=== PATIENT | female | born 1970 | race Caucasian/White ===

== ENCOUNTER 2025-05-19 13:47 | Outpatient (CLI) | payer MEDICAID, SELFPAY ==
[2025-05-19] MEDS: 0.9% NaCl Peripheral Flush Adult IV (14:13)
[2025-05-19] MEDS: 0.9% NaCl IVPB Med Flush (100mL) 15 ML IV (14:14)
[2025-05-19 14:15] VITALS: BP 108/66; PULSE 74; RESP 16; TEMP 36.2; O2SAT 98; BMI 29.2
[2025-05-19 14:41] VITALS: BP 91/64; PULSE 66; RESP 16; TEMP 36.3; O2SAT 99
== END 2025-05-19 23:59 | disposition home or self-care (01) ==
LOC: MEDOUTP 13:49
PROVIDERS: PCP Nurse Practitioner Family; Referring Provider Internal Medicine Endocrinology, Diabetes & Metabolism; Visit Provider Internal Medicine Endocrinology, Diabetes & Metabolism
DX: M81.0 Age-related osteoporosis without current pathological fracture (principal)
CPT/HCPCS: 96365; A4216; J3489

== ENCOUNTER 2025-07-27 10:17 | Inpatient (IN) | payer MEDICAID, SELFPAY ==
--- NOTE | 2025-07-15 08:41 | EKG12_ITS ---
Test Reason : PREOP Blood Pressure : */* mmHG Vent. Rate : 67 BPM Atrial Rate : 67 BPM P-R Int : 158 ms QRS Dur : 76 ms QT Int : 420 ms P-R-T Axes : 73 45 73 degrees QTcB Int : 443 ms Normal sinus rhythm Cannot rule out Septal infarct , age undetermined Abnormal ECG Confirmed by Chadwick Eason ([id number]), film editor supervisor DIANNA SERRANO ([id number]) on 07/16/2025 5:53:19 AM Referred By: Andrey Willson Confirmed By: Chadwick Eaosn
[2025-07-15 10:09] LABS: Hematocrit 45.2 % (37-47); Hemoglobin 15.6 g/dL (12.0-15.0); Mean Corp Hgb Conc 34.5 g/dL (32-36); Mean Corpuscular Volume 86.8 fL (81-99); Mean Platelet Vol. 10.5 fl (6.2-12.0); Platelet Count 226 K/mm3 (150-450); RBC Distribution Width CV 11.9 % (11.6-14.6); RBC Distribution Width SD 38.3 fl (35.1-43.9); Red Blood Count 5.21 M/mm3 (4.2-5.4); White Blood Count 7.2 K/mm3 (4.4-11.0)
[2025-07-15 11:03] LABS: PTHIN 52 pg/mL (11-61)
[2025-07-15 11:17] LABS: AST(SGOT) 23 U/L (<=31); Alanine Aminotransfer ALT/SGPT 30 U/L (<=34); Albumin, Serum 4.4 g/dL (3.5-5.0); Alkaline Phosphatase 70 U/L (35-104); Anion Gap 12 (5-15); BUN 18 mg/dL (4-19); BUN/Creat Ratio 28.6 RATIO (10-20); Calcium,Total 10.0 mg/dL (7.6-11.0); Carbon Dioxide 26.1 mmol/L (21.0-32.0); Chloride 103 mmol/L (98-108); Globulin 2.9 g/dL (2.2-4.2); Glucose 78 mg/dL (70-99); Potassium 4.8 mmol/L (3.3-5.1)
[2025-07-15 11:46] LABS: Ferritin 349 ng/mL (22-378); Vitamin B12 2203 pg/mL (180-914); Vitamin D,25 Hydroxy 62.8 ng/mL (30-100)
--- NOTE | 2025-07-15 17:30 | PAT.ANESEVAL ---
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 When Was Last Pacemaker Check QUESTION #4 FULL TEXT: You/Your Family Experience fever (hyperthermia) with Anesthesia Last Oral Intake Last Oral intake: Last Oral Intake NPO since Meds taken in AM with sips of water? Meds patient instructed to take am of surgery PONV PONV - waiter/waitress: PONV - waiter/waitress Female Yes 07/12/25 09:08 HX of Motion Sickness No 07/12/25 09:08 HX of N/V After Surgery No 07/12/25 09:08 Non-Smoker Yes 07/12/25 09:08 Duration of Surgery greater Yes 07/12/25 09:08 than 60 minutes Number of Risk Factors 3 07/12/25 09:08 PONV Score Moderate Risk 07/12/25 09:08 Height & Weight Height & Weight: Anesthesia: Height & Weight Height 5 ft 2 in 05/19/25 14:15 Respiratory Assessment Respiratory Assessment - waiter/waitress: Respiratory Tract Infection Hx - waiter/waitress Hx Respiratory Tract Infection No 07/12/25 09:08 STOP Sleep Apnea STOP Sleep Apnea - waiter/waitress: STOP Sleep Apnea - waiter/waitress Hx Hypertension Yes: CONTROLLED WITH MED 07/12/25 09:08 Hx Sleep Apnea No 07/12/25 09:08 CPAP BIPAP Do you snore loudly (louder No 07/12/25 09:08 than talking or can be heard Do you often feel tired/ No 07/12/25 09:08 fatigued/ sleepy during daytime? Has anyone observed you stop No 07/12/25 09:08 breathing during sleep? STOP Results Negative 07/12/25 09:08 QUESTION #5 FULL TEXT : Do you snore loudly (louder than talking or can be heard through closed doors)? Tobacco Use History Tobacco Use History - waiter/waitress: Tobacco Use History - waiter/waitress Tobacco Use Smoking Status Former smoker 07/12/25 09:08 Hx Tobacco Use No 07/12/25 09:08 Years Smoking Packs Smoked per Day Smoking Cessation Date was Yes - quit smoking within 15 07/12/25 09:08 within the last 15 years years Hx Smoking Cessation Date 10/21/13 07/12/25 09:08 Hx Smoking Cessation No 07/12/25 09:08 Counseling Hematologic Medial History Hematologic Hx - waiter/waitress: Hematologic Medical Hx - garde manger Hx of Blood Transfusion No 07/12/25 09:08 Hx of Transfusion in last 3 No 07/12/25 09:08 Months Date of Last Transfusion (if within last 3 months) Ever experience any problems No 07/12/25 09:08 with transfusion(s)? Specify any problems Hx of Preganancy in last 3 No 07/12/25 09:08 Months Nurse Filling Out Transfusion DSCHRIBER 07/12/25 09:08 & Questions: Date: 07/12/25 07/12/25 09:08 Time: 09:10 07/12/25 09:08 Patient unable to answer at this time (ie. confused, unrespo /Reproduction History /Reproductive History - waiter/waitress: /Reproductive Hx- waiter/waitress Hx Now No 07/12/25 09:08 Gestational Age (in weeks): EDC: Hx Hx Para Hx Section SAB No 07/12/25 09:08 [facility] Medical History (Updated 07/12/25 @ 09:17 by Vicky Augilar) Post-menopausal Wears glasses Depression Alcohol use Diabetes Fatty liver High cholesterol History of hiatal hernia Diverticulosis Gastric reflux Asthma Former smoker History of edema Cardiology follow-up encounter History of echocardiogram History of stress test Osteoporosis Osteoarthritis Hypertension Arthritis Home Medications ?Medication ?Instructions ?Recorded ?Last Taken ?Type Citrocal 1,200 mg PO BID SUPPLEMENT 05/03/25 Unknown History aspirin 81 mg tablet,delayed 81 mg PO QDAY HEART 05/03/25 Unknown History release atorvastatin 10 mg tablet 10 mg PO QHS CHOLESTEROL 05/03/25 Unknown History citalopram 40 mg tablet 40 mg PO QDAY DEPRESSION 05/03/25 Unknown History lisinopril 10 1 tab PO QDAY BP 05/03/25 Unknown History mg-hydrochlorothiazide 12.5 mg tablet loratadine 10 mg tablet 10 mg PO QAM PRN allergic symptoms 05/03/25 Unknown History omeprazole 40 mg capsule,delayed 40 mg PO QDAY GERD 05/03/25 Unknown History release multivitamin (Daily Multi-Vitamin 1 tab PO DAILY SUPPLEMENT 05/19/25 Unknown History tablet) dulaglutide 1.5 mg/0.5 mL 1.5 mg subcut FR WEIGHT LOSS 06/30/25 Unknown History subcutaneous pen injector ([facility]) zoledronic acid 5 mg/100 mL in 1 ea IV .QYEAR BONE HEALTH 07/12/25 Unknown History mannitol 5 %-water intravenous piggybck Allergy/AdvReac Type Severity Reaction Status Date / Time No Known Allergies Allergy Verified 07/12/25 09:03 Family History Other Anxiety Arthritis Cervical cancer Depression Diabetes Hypertension Psychiatric care Respiratory disease Suicide attempt Surgical History (Updated 07/12/25 @ 09:17 by Vicky Aguilar) Bariatric surgery status History of mandibular surgery (~1997) History of placement of ear tubes (~1983) Social History Smoking Status: Former smoker alcohol intake: current substance use type: does not use what type of physical activity do you participate in: walking frequency: 3-4 times per week Audit: Pertinent Findings Pertinent Findings EKG Perinent findings: 04/05/2024. Sinus rhythm with PAC. Stress test pertinent findings: 08/16/2022. Patient she is 5.4 METS. EF is 65%. No definite evidence of ischemia or prior infarction. Echo (EF%) pertinent findings: 08/16/2022. Normal LV systolic EF is 60%. No aortic stenosis noted. Consult pertinent findings: 03/19/2023. Dr. De León?cardiology. 1. Preop clearance for bariatric surgery-echo and stress test were unremarkable without evidence of ischemia. Patient average risk for cardiovascular complications from bariatric surgery. No further cardiac testing is indicated. Recommendation Anesthesia Recommendation Anesthesia recommendation: OPTIMIZED for anesthesia
[2025-07-22 18:08] LABS: Vitamin A, Retinol 52.2 ug/dL (20.1-62.0)
[2025-07-27] VITALS (24 sets, daily range): BP systolic 97–128; BP diastolic 43–79; PULSE 58–98; RESP 11–20; TEMP 36.3–37.1; O2SAT 95–100; BMI 28.6; BMI 29.5
[2025-07-27] MEDS: Lactated Ringers 1,000 ML 15 ML IV (06:37)
--- NOTE | 2025-07-27 06:43 | PCM.PRE.AN2 ---
ASA Classification* ASA Classification ASA Classification: 3 Assessment & Plan Anesthesia* Anesthesia Assessment Anesthesia Assessment: Discussed sedation and/or anesthesia options, risks, benefits, and alternatives with patient/parents/legal guardian/POA. Questions invited. The patient/parents/legal guardian/POA seems to understand and agrees to proceed with anesthesia plan. Reviewed the physical assessment, medical history, allergy history and patient home medications list prior to surgery/procedure/anesthetic and documented any changes. Performed airway and anesthesia risk assessments. Anesthesia Type Anesthesia Type: General ([place] ) Anesthesia Focused Assessment* Temperature: 98.5 F Pulse Rate: 65 Blood Pressure: 128/79 Respiratory Rate: 18 Pulse Ox: 97 Airway Assessment Mouth opens: >3 cm Mallampati Score: II Labs Anesthesia Preop lab: CBC WBC, (4.4-11.0) 7.2 K/mm3 07/15/25, 09:44 RBC, (4.2-5.4) 5.21 M/mm3 07/15/25, 09:44 Hgb, (12.0-15.0) 15.6 g/dL H 07/15/25, 09:44 Hct, (37-47) 45.2 % 07/15/25, 09:44 Plt Count, (150-450) 226 K/mm3 07/15/25, 09:44 CHEMISTRY Potassium, (3.3-5.1) 4.8 mmol/L 07/15/25, 09:48 Sodium, (133-145) 141 mmol/L 07/15/25, 09:48 BUN, (4-19) 18 mg/dL 07/15/25, 09:48 Creatinine, (0.70-1.20) 0.63 mg/dL L 07/15/25, 09:48 Glucose, (70-99) 78 mg/dL 07/15/25, 09:48 COAG Pre-Assessment Diagnosis/Proposed Procedure Planned Operative Procedure(s): RIGHT CAROTID ENDARTERECTOMY Anesthesia History 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 When Was Last Pacemaker Check QUESTION #4 FULL TEXT: You/Your Family Experience fever (hyperthermia) with Anesthesia Last Oral Intake Last Oral intake: Last Oral Intake NPO since 04:00 07/27/25 06:21 Meds taken in AM with sips of Yes 07/27/25 06:21 water? Meds patient instructed to see medlist 07/27/25 06:21 take am of surgery PONV PONV - automotive detailer: PONV - automotive detailer Female Yes 07/12/25 09:08 HX of Motion Sickness No 07/12/25 09:08 HX of N/V After Surgery No 07/12/25 09:08 Non-Smoker Yes 07/12/25 09:08 Duration of Surgery greater Yes 07/12/25 09:08 than 60 minutes Number of Risk Factors 3 07/12/25 09:08 PONV Score Moderate Risk 07/12/25 09:08 Height & Weight Height & Weight: Anesthesia: Height & Weight Height 5 ft 2 in 07/27/25 06:21 Weight: 71 kg 07/27/25 06:21 Body Mass Index (BMI) 28.6 07/27/25 06:21 Respiratory Assessment Respiratory Assessment - automotive detailer: Respiratory Tract Infection Hx - automotive detailer Hx Respiratory Tract Infection No 07/12/25 09:08 STOP Sleep Apnea STOP Sleep Apnea - automotive detailer: STOP Sleep Apnea - automotive detailer Hx Hypertension Yes: CONTROLLED WITH MED 07/12/25 09:08 Hx Sleep Apnea No 07/12/25 09:08 CPAP BIPAP Do you snore loudly (louder No 07/12/25 09:08 than talking or can be heard Do you often feel tired/ No 07/12/25 09:08 fatigued/ sleepy during daytime? Has anyone observed you stop No 07/12/25 09:08 breathing during sleep? STOP Results Negative 07/12/25 09:08 QUESTION #5 FULL TEXT : Do you snore loudly (louder than talking or can be heard through closed doors)? Tobacco Use History Tobacco Use History - automotive detailer: Tobacco Use History - automotive detailer Tobacco Use Smoking Status Former smoker 07/12/25 09:08 Hx Tobacco Use No 07/12/25 09:08 Years Smoking Packs Smoked per Day Smoking Cessation Date was Yes - quit smoking within 15 07/12/25 09:08 within the last 15 years years Hx Smoking Cessation Date 10/21/13 07/12/25 09:08 Hx Smoking Cessation No 07/12/25 09:08 Counseling Hematologic Medial History Hematologic Hx - automotive detailer: Hematologic Medical Hx - key account representative Hx of Blood Transfusion No 07/12/25 09:08 Hx of Transfusion in last 3 No 07/12/25 09:08 Months Date of Last Transfusion (if within last 3 months) Ever experience any problems No 07/12/25 09:08 with transfusion(s)? Specify any problems Hx of Preganancy in last 3 No 07/12/25 09:08 Months Nurse Filling Out Transfusion DSCHRIBER 07/12/25 09:08 & Questions: Date: 07/12/25 07/12/25 09:08 Time: 09:10 07/12/25 09:08 Patient unable to answer at this time (ie. confused, unrespo /Reproduction History /Reproductive History - automotive detailer: /Reproductive Hx- automotive detailer Hx Now No 07/12/25 09:08 Gestational Age (in weeks): EDC: Hx Hx Para Hx Section SAB No 07/12/25 09:08 Active Medications Active Medications: Current Medications Generic Name Dose Route Start Last Admin Trade Name Freq PRN Reason Stop Dose Admin Cefazolin Sodium 2 gm/ Sodium 110 mls @ 200 mls/hr 07/27/25 07:30 Chloride IV 07/27/25 08:02 INTRAOP ONE Lactated Ringer's 1,000 mls @ 15 mls/hr 07/27/25 05:45 07/27/25 06:37 IV 15 mls/hr .Q48H RENE Administration PFSH Medical History Post-menopausal Wears glasses Depression Alcohol use Diabetes Fatty liver High cholesterol History of hiatal hernia Diverticulosis Gastric reflux Asthma Former smoker History of edema Cardiology follow-up encounter History of echocardiogram History of stress test Osteoporosis Osteoarthritis Hypertension Arthritis Home Medications ?Medication ?Instructions ?Recorded ?Last Taken ?Type Citrocal 1,200 mg PO BID SUPPLEMENT 05/03/25 07/25/25 History aspirin 81 mg tablet,delayed 81 mg PO QDAY HEART 05/03/25 07/26/25 History release atorvastatin 10 mg tablet 10 mg PO QHS CHOLESTEROL 05/03/25 07/26/25 History citalopram 40 mg tablet 40 mg PO QDAY DEPRESSION 05/03/25 07/27/25 History lisinopril 10 1 tab PO QDAY BP 05/03/25 07/26/25 History mg-hydrochlorothiazide 12.5 mg tablet loratadine 10 mg tablet 10 mg PO QAM PRN allergic symptoms 05/03/25 07/26/25 History omeprazole 40 mg capsule,delayed 40 mg PO QDAY GERD 05/03/25 07/27/25 History release multivitamin (Daily Multi-Vitamin 1 tab PO DAILY SUPPLEMENT 05/19/25 07/26/25 History tablet) dulaglutide 1.5 mg/0.5 mL 1.5 mg subcut FR WEIGHT LOSS 06/30/25 07/16/25 [facility] zoledronic acid 5 mg/100 mL in 1 ea IV .QYEAR BONE HEALTH 07/12/25 Unknown History mannitol 5 %-water intravenous piggybck Allergy/AdvReac Type Severity Reaction Status Date / Time No Known Allergies Allergy Verified 07/27/25 06:07 Family History Other Anxiety Arthritis Cervical cancer Depression Diabetes Hypertension Psychiatric care Respiratory disease Suicide attempt Surgical History Bariatric surgery status History of mandibular surgery (~1997) History of placement of ear tubes (~1983) Social History Smoking Status: Former smoker alcohol intake: current substance use type: does not use what type of physical activity do you participate in: walking frequency: 3-4 times per week Review of Systems (Anesthesia) ROS Narrative System reviewed and no additional complaints, except as documented.
[2025-07-27] MEDS: Midazolam 2 MG/2 ML Syringe IV (07:25)
--- NOTE | 2025-07-27 07:30 | PLAQ_PTH ---
PATIENT: LYNN PEREZ LOC: ICU U#:[id number] AGE/SX: 55/F ROOM: [facility] RE07/27/[address]: Dr. Andrey Willson MD : 1970 BED: 1 DIS: 07/28/2025 SPEC #: [id number] RECD: 07/27/25 11:49 STATUS: KEISHA REQ #: [id number] RAQUEL: 07/27/25 07:[address]: Andrey Willson DEPT: SURGICAL PATHOLOGY RECD BY: Ortega Camacho ENTERED: 07/27/25 13:42 SP TYPE: PLAQUE OTHR DR: JUAN Mao Tissues: A - PLAQUE Procedures: Decalcification bone/plaque Surgery Specimen Level III HEADER OPERATION: Right carotid endarterectomy PRE-OP DIAGNOSIS: Stenosis of right carotid artery without cerebral infarction TISSUE SUBMITTED: A- Right carotid plaque MICROSCOPIC DIAGNOSIS A. Plaque, right carotid endarterectomy: * Calcifying atheromatous plaque GROSS DESCRIPTION A. Received in formalin labeled with the patient's name and date of . Designated as right carotid plaque is a 2.7 x 1.0 cm yellow-red, calcified plaque. Manager Aviation sections are submitted in 1 cassette, following decalcification. ID 07/27/2025 CPT:[id number]
--- NOTE | 2025-07-27 07:31 | PCM.HP.BLA ---
History and Physical Allergies No Known Allergies Allergy (Verified 06/30/25 13:18) Medications ?Medication ?Instructions ?Recorded ?Confirmed ?Type Citrocal PO BID 05/03/25 06/30/25 History aspirin 81 mg tablet,delayed 81 mg PO QDAY 05/03/25 06/30/25 History release atorvastatin 10 mg tablet 10 mg PO QDAY 05/03/25 06/30/25 History citalopram 40 mg tablet 40 mg PO QDAY 05/03/25 06/30/25 History lisinopril 10 0.5 tab PO QDAY 05/03/25 06/30/25 History mg-hydrochlorothiazide 12.5 mg tablet loratadine 10 mg tablet 10 mg PO QAM PRN allergic symptoms 05/03/25 06/30/25 History omeprazole 40 mg capsule,delayed 40 mg PO QDAY 05/03/25 06/30/25 History release zoledronic acid 5 mg/100 mL in 1 ea .Route ONCE #100 mL 05/07/25 06/30/25 Rx mannitol 5 %-water intravenous piggybck multivitamin (Daily Multi-Vitamin 1 tab PO DAILY 05/19/25 06/30/25 History tablet) dulaglutide 1.5 mg/0.5 mL 1.5 mg subcut QWEEK 06/30/25 06/30/25 [facility] Is last menstrual period known: No Post menopausal: Yes Patient : No Have you fallen in the past year?: No PFSH Medical History GERD (gastroesophageal reflux disease) Osteoporosis Osteoarthritis Hypertension Bone fracture Back problem Arthritis Allergies Surgical History History of mandibular surgery (~1997) History of placement of ear tubes (~1983) Bariatric surgery status (~2024) Family History Other Anxiety Arthritis Cervical cancer Depression Diabetes Hypertension Psychiatric care Respiratory disease Suicide attempt Social History Smoking Status: Former smoker alcohol intake: current substance use type: does not use what type of physical activity do you participate in: walking frequency: 3-4 times per week HPI HPI HPI: LYNN PEREZ, is a 55 F who presents to the office today for evaluation of asymptomatic right carotid stenosis. Initially found while investigating audible pulsation in ear. CTA at outside facility revealed severe right ICA stenosis. No prior numbness/weakness/vision loss/speech difficulty. On ASA/statin. Has coronary artery disease diagnosed as mild during evaluation for gastric bypass surgery about 2 years ago at . No prior neck surgery/XRT/limitation to ROM. She is able to walk up flight of stairs without CP/SOB ROS General General: Yes weight change; No appetite, fatigue, colon cancer, breast cancer or weakness HEENT HEENT: No difficulty swallowing, eye injury, eye surgery, swollen glands or hoarseness Endo Endocrine: No thyroid disease, diabetes mellitus, thyroid cancer, Hair loss, heat intolerance or cold intolerance Skin Skin: No rash or changing moles Musc Musculoskeletal: Yes back problems and arthritis; No rheumatoid arthritis, gout or joint pain Cardio Cardiovascular: Yes heart disease and high blood pressure; No murmur, pacemaker, atrial fibrillation, heart attack, heart stent, palpitations, shortness of breath with exertion or chest pain Psych Psychiatric: Yes depression; No anxiety or hearing voices Resp Respiratory: No shortness of breath, No sleep apnea, No cough, No COPD, No asthma, No emphysema and No wheezing Gastro Gastrointestinal: No abdominal pain, No nausea or vomiting, No diarrhea, No constipation, No blood in stool, Yes acid reflux, Yes hemorrhoids, No ulcers, No gallbladder problem and No black,tarry stools Major Hematologic: Yes blood thinners, No blood disorders, No bleeding, No anemia and No blood clots Neuro Neurologic: No system reviewed and no additional complaints, except as documented, No as per HPI, No abnormal gait, No abnormal hearing, No abnormal movements, No abnormal speech, No behavioral changes, No burning sensations, No confusion, No convulsions, No disequilibrium, No dizziness, Yes localized weakness, No frequent falls, No headache(s), No lack of coordination, No loss of vision, No memory loss, No numbness, No other visual disturbances, No radicular pain, No restless legs, No sensory deficit, No syncope, No tingling, No tremor(s), No weakness and No other Exam Const General: cooperative, healthy appearing, comfortable, no acute distress and well developed Nutritional Appearance: well nourished Orientation: alert, awake and oriented x3 HENMT Head: normocephalic and atraumatic Ears: hearing grossly normal bilaterally Nose: external nose normal Eyes General: appearance normal, both eyes and all related structures EOM: EOM intact bilaterally Neck Neck: normal visual inspection, full ROM, no lymphadenopathy and trachea midline Thyroid: thyroid normal Lymphatic: no lymphadenopathy noted Resp Effort & Inspection: normal respiratory effort, able to speak in complete sentences, symmetric chest movement, no audible wheezes, not labored, no stridor and no use of accessory muscles Auscultation: clear to auscultation bilaterally Cardio Rate: regular rate Rhythm: regular rhythm Heart Sounds: no murmurs Bruits: carotid bruit on the right Pulses: brachial pulses present, radial pulses present, popliteal pulses present, posterior tibial pulses present and dorsalis pedis present Skin General: no rashes or lesions noted and no erythema Wounds: no wounds Neuro Cranial Nerves: CN's II-XI intact bilaterally and EOM intact bilaterally Speech: speech normal Gait: normal gait Motor: strength 5/5 throughout Sensory Exam: no sensory deficits noted Psych Appearance: grossly normal and well kempt Mental Status: mental status grossly normal Mood: congruent mood Speech and Movement: speech and movement normal Thought Content: normal Judgment: judgment good Coding Level of Care Code Off vis,new,level 4 Diagnoses Stenosis of right carotid artery without cerebral infarction I65.21 Assessment and Plan Assessment and Plan (1) Stenosis of right carotid artery without cerebral infarction: Status: Chronic Comment: CTA- images reviewed, 75% stenosis right ICA origin, short lesion, normal bifurcation location, dense calcification Plan: right carotid endarterectomy
[2025-07-27] MEDS: Lidocaine 1% (5 ml sdv) 5 ML Vial IV (07:44)
[2025-07-27] MEDS: Cefazolin 1 GM/5 ML Vial 2 GM IV (07:45)
[2025-07-27] MEDS: Heparin Injection (Vial) 5,000 UNIT/ML VIAL 8000 UNIT IV (09:23)
[2025-07-27 10:23] LABS: ACT Activated Clotting Time 297 sec (74-137)
[2025-07-27 10:23] LABS: ACT Activated Clotting Time 239 sec (74-137)
[2025-07-27 10:23] LABS: ACT Activated Clotting Time 135 sec (74-137)
[2025-07-27 10:23] LABS: ACT Activated Clotting Time 262 sec (74-137)
--- NOTE | 2025-07-27 10:23 | OP.PCM_ITS ---
Operative Report (Standard) Operative Information Date of Procedure: 07/27/25 Pre-Operative Diagnosis: right carotid stenosis Post-Operative Diagnosis: same Surgery/Procedure Performed: right carotid endarterectomy cooky machine operator: Yes Sole Polisher: Sheila Shah Tasks completed by patent legal assistant: Opening, Closing, Opening & closing, Hemostasis: Tie, Hemostasis: Electrocautery and Retracting Type of Anesthesia: General RN Documented Start/Stop Times: Operation Date: 07/27/25 07:30 Case Time Into Pre-Op 07/27/25 05:37 Anesthesia Start 07/27/25 07:37 Into Room 07/27/25 07:37 Procedure Start 07/27/25 08:09 Procedure Start Time: 08:10 Procedure Stop Time: 10:30 Select all DRAINS/GRAFTS/IMPLANTS that apply: Graft Graft details: bovine pericardial patch Estimated Blood Loss: 31 Specimen collected: Yes Description of specimen(s) removed: plaque Surgical Findings: see above
--- NOTE | 2025-07-27 10:23 | PCM.OPRPT ---
Operative Report (Standard) Operative Information Date of Procedure: 07/27/25 Pre-Operative Diagnosis: right carotid stenosis Post-Operative Diagnosis: same Surgery/Procedure Performed: right carotid endarterectomy grey stock recorder: Yes Stock Handler: Sheila Shah Tasks completed by airline pilot/first officer: Opening, Closing, Opening & closing, Hemostasis: Tie, Hemostasis: Electrocautery and Retracting Type of Anesthesia: General RN Documented Start/Stop Times: Operation Date: 07/27/25 07:30 Case Time Into Pre-Op 07/27/25 05:37 Anesthesia Start 07/27/25 07:37 Into Room 07/27/25 07:37 Procedure Start 07/27/25 08:09 Procedure End 07/27/25 10:33 Anesthesia End 07/27/25 10:43 Out of Room 07/27/25 10:43 Into Recovery 07/27/25 10:46 Out of Recovery 07/27/25 11:51 Procedure Start Time: 08:10 Procedure Stop Time: 10:30 Select all DRAINS/GRAFTS/IMPLANTS that apply: Graft Graft details: bovine pericardial patch Estimated Blood Loss: 31 Specimen collected: Yes Description of specimen(s) removed: plaque Description of surgery: HPI: Patient is a 55-year-old female with asymptomatic severe right carotid artery stenosis due to a densely calcified plaque. She presents now for carotid endarterectomy. Description of procedure: Upon obtaining informed consent and verification correct patient procedure and site the patient was taken to the operating where she was placed under general anesthesia. She was then positioned prepped and draped in usual sterile fashion and timeout was performed. Oblique incision was made along the anterior border the sternocleidomastoid and Bovie used to dissect down through subcutaneous tissue to the platysma. The platysma was divided and self-retaining retractors put in position followed by further dissection down to the sternocleidomastoid which was mobilized along with anterior border allowing it to be retracted posterior laterally. The carotid sheath was then visualized and sharp dissection used to dissect free the anterior border of the jugular vein with sidebranches identified, ligated with silk ties, and divided. Self-retaining retractors then moved deeper in the wound and the carotid vessels visualized. Sharp dissection was used to dissect free the proximal common carotid artery with care taken to identify and protect the vagus nerve. A right angle was used to place a vessel loop proximally and attention was then turned to the internal carotid artery. Sharp dissection was then used to dissect free the internal carotid artery beyond the palpable and visible plaque with care taken to identify protect the hypoglossal nerve. A writing was used to place a vessel distally on the internal carotid artery the patient was then heparinized allowed to circulate for 3 minutes with subsequent heparin dosing based on ACT results. During this time sharp dissection was used dissect free the external carotid artery and a right angle used to place a vessel loop. Vessels were then occluded first the internal followed by the common and the external. A longitudinal arteriotomy was created with 11 blade on the common carotid artery and extended the Hurley scissors onto the internal carotid artery beyond the area of plaque. A 12 Serbian [place] shunt was then placed first distally in the internal carotid artery of the backbleed before placing proximally in the common carotid artery. The shunt was then interrogated with Doppler and found to be patent with low resistance signal. We then performed her endarterectomy with a freer elevator with eversion endarterectomy of the external carotid artery. The distal endpoint in the internal carotid artery did not taper as desired so the arteriotomy was extended with Hurley scissors further cephalad until an appropriate endpoint could be created. The distal endpoint was then tacked with 7-0 Prolene interrupted sutures and the lumen flushed with heparinized saline to clear of any debris. A bovine pericardial patch was then brought in the field and secured in position using 6-0 Prolene in a running fashion. Prior to completing the suture line the shunt was removed and the vessels were backbled. After completing the suture line the internal carotid artery was allowed to backbleed into the bifurcation and then reoccluded at its origin. Clamps were then released from the external and common carotid artery allowing 10 heartbeats of antegrade flow to flush into the external carotid artery before reestablishing flow into the internal carotid artery. Once the clamps were released the vessels were interrogated with Doppler with appropriate signal patent vessel in the internal and external carotid artery. There was satisfactory hemostasis observed and the heparin was reversed with protamine. A 19 Serbian channel EDWARD was then placed via separate stab incision. There was some oozing from the superior aspect of the incision anterior medial to the carotid so hemoblast topical hemostatic was applied followed by manual pressure with satisfactory hemostasis observed. The incision was then closed with 2-0 Vicryl, 3-0 Vicryl, 4-0 Monocryl and Dermabond for the skin. At the conclusion of the case the patient was awake from anesthesia moving all extremities to command with cranial nerves intact. She was then taken to the recovery room with anticipated admission to the intensive care and for hemodynamic and neurologic monitoring. Surgical Findings: see above Complications Complications: No
[2025-07-27] MEDS: SUFentanil 50 MCG/ML Ampul 20 MCG IV (10:39)
--- NOTE | 2025-07-27 10:51 | PCM.POST.ANE ---
Anesthesia: Postop Eval I Current Vital Signs Temperature: 97.3 F Pulse Rate: 94 Blood Pressure: 109/69 Respiratory Rate: 20 Pulse Ox: 95 Oxygen Delivery Method: Room Air Assessment Airway patent: Yes Spontaneous unlabored respirations: Yes Mental status: Awake and Calm nausea: No Vomiting: No Anesthesia Complication: No Fluid Hydration Crystalloid volume administer (ml): 1,900 Total IV fluid infused: 1,900 Progress Note Anesthesia document: Postop Eval 1 completed: Yes
--- NOTE | 2025-07-27 11:48 | POSTOPAN2_ITS ---
Anesthesia Postop Eval I Sum Postop Eval Completion status Anesthesia document: Postop Eval 1 completed: Yes Anesthesia Postop Eval I Summary Anesthesia Postop Eval I Summary: Anesthesia Postop Eval I: Assessment Summary Airway patent Yes 07/27/25 10:52 THERMAL [email or web address] Spontaneous unlabored Yes 07/27/25 10:52 THERMAL [email or web address] respirations Mental status Awake,Calm 07/27/25 10:52 THERMAL [email or web address] nausea No 07/27/25 10:52 THERMAL [email or web address] Vomiting No 07/27/25 10:52 THERMAL [email or web address] Anesthesia Postop Eval I: Fluid Summary Crystalloid volume administer 1,900 07/27/25 10:52 THERMAL [email or web address] (ml) Colloids volume administered ( ml) Blood Product volume administered (ml) Total IV fluid infused 1,900 07/27/25 10:52 THERMAL [email or web address] Anesthesia Postop Eval I: Summary Notes Anesthesia Complication No 07/27/25 10:52 THERMAL [email or web address] Anesthesia Complication Comment: Post-operative progress note Anesthesia: Postop Eval II Evaluation Mental status: Awake Pain Level: 0 nausea: No Vomiting: No
--- NOTE | 2025-07-27 11:48 | PCM.POSTANE2 ---
Anesthesia Postop Eval I Sum Postop Eval Completion status Anesthesia document: Postop Eval 1 completed: Yes Anesthesia Postop Eval I Summary Anesthesia Postop Eval I Summary: Anesthesia Postop Eval I: Assessment Summary Airway patent Yes 07/27/25 10:52 GAUGE AND WEIGH MACHINE [email or web address] Spontaneous unlabored Yes 07/27/25 10:52 GAUGE AND WEIGH MACHINE [email or web address] respirations Mental status Awake,Calm 07/27/25 10:52 GAUGE AND WEIGH MACHINE [email or web address] nausea No 07/27/25 10:52 GAUGE AND WEIGH MACHINE [email or web address] Vomiting No 07/27/25 10:52 GAUGE AND WEIGH MACHINE [email or web address] Anesthesia Postop Eval I: Fluid Summary Crystalloid volume administer 1,900 07/27/25 10:52 GAUGE AND WEIGH MACHINE [email or web address] (ml) Colloids volume administered ( ml) Blood Product volume administered (ml) Total IV fluid infused 1,900 07/27/25 10:52 GAUGE AND WEIGH MACHINE [email or web address] Anesthesia Postop Eval I: Summary Notes Anesthesia Complication No 07/27/25 10:52 GAUGE AND WEIGH MACHINE [email or web address] Anesthesia Complication Comment: Post-operative progress note Anesthesia: Postop Eval II Evaluation Mental status: Awake Pain Level: 0 nausea: No Vomiting: No
--- NOTE | 2025-07-27 14:27 | CASEMGMT ---
EVELIN PICHARDO Assessment: Face to Face with pt for initial transition planning/care coordination assessment. EVELIN PICHARDO introduced self and role at [facility], pt voices understanding and consents to assessment. Pt is A&O x4 and answers all questions appropriately at this time. Pt resting in bed in no distress. Care providers, pharmacy, and demographics verified/updated. Strata: 1 Admitting Dx: R carotid endarterectomy PCP: Jim Specialists: Wt. Management program Preferred Pharmacy: [facility] Insurance: [employer] Prescription Benefit: yes LNOK: Daughter, Liliya Living Arrangements: Pt lives with step-mom and daughter. Pt cares for step mom. ADLs: Pt reports I with ADLs and IADLs. Transportation: Pt drives self and denies concerns with transportation. DME: Denies HHC/SNF: Denies Hx of. Pt states no concerns with going home at time of dc. Pt states no further concerns/needs. CM to follow. Advised pt to ask CM if any further question/concerns/needs arise, voices understanding. Pt Goal: Home Plan: Home, follow for safe DC plan. Jessika WATERS CM
[2025-07-27] MEDS: Cefazolin 1 GM/50 ML BAG IV ×2 (15:24→16:13)
[2025-07-27] MEDS: 0.9% Saline Lock 10 ML Syringe IV ×2 (15:24→18:48)
[2025-07-27] MEDS: HYDROmorphone 0.5 MG/0.5 ML SYRINGE IV (18:43)
[2025-07-28] VITALS (10 sets, daily range): BP systolic 93–119; BP diastolic 58–79; PULSE 55–77; RESP 10–18; TEMP 36.2–36.4; O2SAT 92–100; BMI 30.3
--- NOTE | 2025-07-28 08:20 | PCM.PN.SRG ---
Subjective Subjective I saw Tanya this morning, she was resting comfortably in bed. She reports to feeling okay overall. She states she had a mild right-sided headache yesterday but that has resolved. She has some soreness at the neck incision, primarily with turning her head. She reports no vision changes, weakness, paresthesias/numbness. She was ambulating with nursing last night, reports no associated lightheadedness/dizziness. She had soft foods for dinner last night and tolerated that well. Her blood pressures have been satisfactory, on the lower side without any of her home medications. She has had mild output from the EDWARD drain, serosanguineous. Objective Data Objective Data Vital Signs: Vital Signs Temp Pulse Resp BP Pulse Ox O2 Del Method O2 Flow Rate 97.3 F L 77 12 110/66 95 Room Air 2 07/28/25 06:00 07/28/25 07:00 07/28/25 07:00 07/28/25 07:00 07/28/25 07:00 07/28/25 07:00 07/28/25 06:00 Oxygen Flow Rate (L/min) 2 Oxygen Delivery Method Room Air Weight: 164 lb 14.492 oz Body Mass Index (BMI) 30.3 Intake & Output: Intake and Output for Last 24 Hours 07/26/25 07/27/25 07/28/25 23:59 23:59 23:59 Intake Total 186.5 / 186.5 240 / 240 Output Total 36 / 36 Balance 150.5 / 150.5 240 / 240 Lab / Micro Data 07/15/25 09:44 07/15/25 09:48 Labs: Laboratory Results - last 24 hr 07/27/25 07:54: Activated Clotting Time 135 07/27/25 08:43: Activated Clotting Time 297 H 07/27/25 09:19: Activated Clotting Time 239 H 07/27/25 09:51: Activated Clotting Time 262 H Physical Exam Const alert, oriented x3 and no apparent distress General Appearance: cooperative and comfortable HEENT normocephalic, head/scalp atraumatic, hearing grossly normal bilaterally, external ears normal and external nose normal Eyes General Eye: normal appearance of both eyes Neck Neck Narrative: R CEA incision site with skin glue intact, mild swelling soft to palpation, mild redness where adhesive dressing was removed. About 15 cc serosanuineous output in EDWARD drain when removed. General: normal visual inspection and trachea midline Resp normal respiratory effort, no retractions and no use of accessory muscles Effort and Inspection: able to speak in complete sentences; Negative for labored, grunting or stridor Cardio regular rate and regular rhythm Extremity no clubbing, cyanosis or edema Neuro oriented x3, CN's II-XII intact bilaterally, moves all extremities, no focal motor deficits and no sensory deficits noted Psych mental status grossly normal Appearance: grossly normal Attitude: calm and engaged Activity / Motor Behavior: appropriate eye contact Speech: normal speech Mood & Affect: euthymic mood Assessment & Plan Assessment/Plan (1) Stenosis of right carotid artery without cerebral infarction: PLAN: She is POD#1 from R CEA. Incision site satisfactory in appearance, mild swelling which is soft to palpation. EDWARD drain was removed without issue, she tolerated this well. Plan is to progress to normal diet for breakfast. She has ambulated without issue. She has expected soreness at the operative site, well controlled with current regimen. She is voiding without difficulty. Plan for discharge home later this morning. Charges/Coding Procedures Integumentary [id number]: [id number] Global Visit
--- NOTE | 2025-07-28 08:30 | DS.PCM_ITS ---
Providers Date of Admission: 07/27/25 Primary Care Physician: Chantel Fernandez, ASSOCIATE PROFESSOR OF BIOSTATISTICS-C Reason For Visit: Right Carotid Endarterectomy Diagnosis Discharge Diagnosis (1) Stenosis of right carotid artery without cerebral infarction: Status: Chronic Code(s): I65.21 - Occlusion and stenosis of right carotid artery Plan: She is POD#1 from R CEA. Incision site satisfactory in appearance, mild swelling which is soft to palpation. EDWARD drain was removed without issue, she tolerated this well. Plan is to progress to normal diet for breakfast. She has ambulated without issue. She has expected soreness at the operative site, well controlled with current regimen. She is voiding without difficulty. Plan for discharge home later this morning. Medications at Discharge Home Medications Citrocal 1,200 mg PO BID SUPPLEMENT 05/03/25 aspirin 81 mg tablet,delayed release 81 mg PO QDAY HEART 05/03/25 atorvastatin 10 mg tablet 10 mg PO QHS CHOLESTEROL 05/03/25 citalopram 40 mg tablet 40 mg PO QDAY DEPRESSION 05/03/25 lisinopril 10 mg-hydrochlorothiazide 12.5 mg tablet 1 tab PO QDAY BP 05/03/25 Held on 07/28/25. Instructions: Resume on 07/30/25. Hold until systolic blood pressure (top number) is 140 or greater loratadine 10 mg tablet 10 mg PO QAM PRN allergic symptoms 05/03/25 omeprazole 40 mg capsule,delayed release 40 mg PO QDAY GERD 05/03/25 multivitamin (Daily Multi-Vitamin tablet) 1 tab PO DAILY SUPPLEMENT 05/19/25 dulaglutide 1.5 mg/0.5 mL subcutaneous pen injector (Trulicity) 1.5 mg subcut FR WEIGHT LOSS 06/30/25 zoledronic acid 5 mg/100 mL in mannitol 5 %-water intravenous piggybck 1 ea IV .QYEAR BONE HEALTH 07/12/25 acetaminophen 500 mg tablet 1,000 mg (2 x 500 mg) PO Q8 #0 tabs 07/28/25 oxycodone 5 mg tablet 5 mg PO Q8H PRN PRN Pain Score 4-10 3 days #9 tabs 07/28/25 Hospital Course Operations - (R CEA) Summary of Care Provided Hospital Course: Tanya Mendiola is a 55 y/o female who is s/p R CEA 07/27/2025. Her surgery was without complication and she tolerated it well. Postoperatively, she was routinely admitted to the ICU for ongoing hemodynamic and neurologic monitoring. She has remained hemodynamically and neurologically stable throughout her admission. EDWARD drain was removed without issue POD#1 and incision site satisfactory in appearance. On POD#1 she was ambulating without difficulty, tolerating diet, voiding without difficulty, pain well controlled. She was discharged to home 07/28/25 with planned outpatient follow-up in the office on 08/10/25. Physical Exam Const alert, oriented x3 and no apparent distress General Appearance: cooperative and comfortable HEENT normocephalic, head/scalp atraumatic, hearing grossly normal bilaterally, external ears normal and external nose normal Eyes General Eye: normal appearance of both eyes Neck Neck Narrative: R CEA incision site with skin glue intact, mild swelling soft to palpation, mild redness where adhesive dressing was removed. About 15 cc serosanuineous output in EDWARD drain when removed. General: normal visual inspection and trachea midline Resp normal respiratory effort, no retractions and no use of accessory muscles Effort and Inspection: able to speak in complete sentences; Negative for labored, grunting or stridor Cardio regular rate and regular rhythm Extremity no clubbing, cyanosis or edema Neuro oriented x3, CN's II-XII intact bilaterally, moves all extremities, no focal motor deficits and no sensory deficits noted Psych mental status grossly normal Appearance: grossly normal Attitude: calm and engaged Activity / Motor Behavior: appropriate eye contact Speech: normal speech Mood & Affect: euthymic mood Weight / BMI Weight Weight: 164 lb 14.492 oz Body Mass Index (BMI) 30.3 ABG / Lab / Microbiology Data 07/15/25 09:44 07/15/25 09:48 Laboratory: Laboratory Results - last 24 hr 07/27/25 07:54: Activated Clotting Time 135 07/27/25 08:43: Activated Clotting Time 297 H 07/27/25 09:19: Activated Clotting Time 239 H 07/27/25 09:51: Activated Clotting Time 262 H D/C Instructions May shower in (days): 1 Weight Bearing Status: Weight bearing as tolerated Lifting Restricted to (Lbs): 20 Lifting Restrictions: Do not lift greater than 20 pounds for 3 weeks Call your doctor if your incision/area has: Continuous Slow Oozing, Sudden Increased Bleeding and Foul Smelling Discharge Call your doctor if you observe: Fever of 101 or Higher and Uncontrolled pain DC O2, CPAP, BIPAP Needs Home O2 Discharge instructions: No Additional Instructions: INCISION CARE: You have a small bandage on your neck over the site from which the surgical drain was removed. You may remove this bandage tomorrow. As long as there is no residual drainage, you may leave this open to air. If you do notice some continued drainage, you may re-cover with a Band-Aid. Your neck incision site is covered with skin glue which will continue to protect it. The skin glue will peel/flake off on its own over the next few weeks. Please do not pick at it. You may shower tomorrow. It is okay for soap and water to rinse over the incision site, pat to dry. Do not submerge the incision site in water such as to take a bath or go swimming etc. for 3 weeks. MEDICATION INSTRUCTIONS Hold your lisinopril-HCTZ for now. Your blood pressures have been a bit lower than usual following surgery. Please check your blood pressure every morning and every evening or any time you feel dizzy/lightheaded or have other symptoms. When your systolic blood pressure (top number) is 140 mmHg or higher then restart your lisinopril-HCTZ and continue to take as prescribed. You have been prescribed oxycodone 5mg tablet to be taken by mouth every 8 hours as needed for pain. You may take this in addition to Tylenol as needed. You should not drive or operate machinery while taking this medication. Do not take this medication in combination with any other prescription pain medications. Call the office at [phone] with any questions about your medications ACTIVITY INSTRUCTIONS Do not lift greater than 20 pounds for 3 weeks. Otherwise, please continue with activity as tolerated. Do not drive until you can turn your head well enough to safely check your blind spots. FOLLOW-UP INSTRUCTIONS You are scheduled for follow-up in the office on 08/10/25. If you need to change this appointment or have any other questions/concerns, please call the office at [phone]. Please Follow Up With: Madeline Ashford PA When: 08/10/25 Meaningful Use Info Meaningful Use Meaningful Use Diagnoses (Choose all that apply): None applicable Discharge Plan Admission Admit Date/Time: 07/27/25 10:17 Attending Provider: Andrey Willson Primary Care Provider: Chantel Fernandez NP Instructions Additional Instructions / Restrictions: INCISION CARE: You have a small bandage on your neck over the site from which the surgical drain was removed. You may remove this bandage tomorrow. As long as there is no residual drainage, you may leave this open to air. If you do notice some continued drainage, you may re-cover with a Band-Aid. Your neck incision site is covered with skin glue which will continue to protect it. The skin glue will peel/flake off on its own over the next few weeks. Please do not pick at it. You may shower tomorrow. It is okay for soap and water to rinse over the incision site, pat to dry. Do not submerge the incision site in water such as to take a bath or go swimming etc. for 3 weeks. MEDICATION INSTRUCTIONS Hold your lisinopril-HCTZ for now. Your blood pressures have been a bit lower than usual following surgery. Please check your blood pressure every morning and every evening or any time you feel dizzy/lightheaded or have other symptoms. When your systolic blood pressure (top number) is 140 mmHg or higher then restart your lisinopril-HCTZ and continue to take as prescribed. You have been prescribed oxycodone 5mg tablet to be taken by mouth every 8 hours as needed for pain. You may take this in addition to Tylenol as needed. You should not drive or operate machinery while taking this medication. Do not take this medication in combination with any other prescription pain medications. Call the office at [phone] with any questions about your medications ACTIVITY INSTRUCTIONS Do not lift greater than 20 pounds for 3 weeks. Otherwise, please continue with activity as tolerated. Do not drive until you can turn your head well enough to safely check your blind spots. FOLLOW-UP INSTRUCTIONS You are scheduled for follow-up in the office on 08/10/25. If you need to change this appointment or have any other questions/concerns, please call the office at [phone]. Discharge Orders/Prescriptions Prescriptions: New acetaminophen 500 mg Tablet 1,000 mg PO Q8 Qty: 0 0RF oxycodone 5 mg Tablet 5 mg PO Q8H PRN PRN (Reason: Pain Score 4-10) 3 Days Qty: 9 0RF Continued omeprazole 40 mg capsule,delayed release(DR/EC) 40 mg PO QDAY citalopram 40 mg tablet 40 mg PO QDAY aspirin 81 mg tablet,delayed release (DR/EC) 81 mg PO QDAY loratadine 10 mg tablet 10 mg PO QAM PRN (Reason: allergic symptoms) Citrocal 1,200 mg 1,200 mg PO BID atorvastatin 10 mg tablet 10 mg PO QHS Trulicity 1.5 mg/0.5 mL pen injector 1.5 mg subcut FR zoledronic [id number] 5 mg/100 mL piggyback 1 ea IV .QYEAR Rx Instructions: 1 ea intravenously once; infuse over 20 minutes multivitamin [Daily Multi-Vitamin] Tablet 1 tab PO DAILY Held lisinopril-hydrochlorothiazide 10-12.5 mg tablet 1 tab PO QDAY Hold Instructions: Resume on 07/30/25. Hold until systolic blood pressure (top number) is 140 or greater Referrals / Follow Up: Chantel Fernandez NP, ASSOCIATE PROFESSOR OF BIOSTATISTICS-C [Primary Care Provider, Family Practice] Disposition Disposition (needs filled in before D/C Order can be placed): Home, Self Care Charges/Coding Procedures Integumentary 111xxx-113xx: [id number] Global Visit
[2025-07-28] MEDS: Aspirin E.C. 81 MG Tablet PO (09:12)
--- NOTE | 2025-07-28 09:20 | CASEMGMT ---
EVELIN PICHARDO note: Discharge order is in. RN CM to room. Introduced self and role. Pt denies having any concerns w/going home. She is aware of appt w/ANGEL Ribeiro, on 08/10/25. Rx for Oxycodone has been e-scribed to [facility] retail pharmacy. Pt would like them delivered to her room if there is no co-pay. Pharmacy notified. Barry JAIMES RN CM
--- NOTE | 2025-07-28 09:59 | PHA.DC_ITS ---
Pharmacy [facility] Counseling Pharmacy Service has performed discharge medication reconciliation and counseling for this patient. 1. ACETAMINOPHEN 1000MG PO Q8 2. OXYCODONE 5MG PO Q8H PRN PAIN 3. RESUME LISINOPRIL/HCTZ ON 07/30 The patient's discharge medication list was reviewed for discrepancies and discrepancies were resolved. The patient was counseled on the following discharge medications and changes in medications for homegoing were reviewed. The Reason for Use, instructions for use, and potential side effects were reviewed for all new medications. The patient's questions regarding all of their medications were answered. The patient was able to verbally demonstrate an understanding of their discharge medications. Medications at Discharge Home Medications Citrocal 1,200 mg PO BID SUPPLEMENT 05/03/25 aspirin 81 mg tablet,delayed release 81 mg PO QDAY HEART 05/03/25 atorvastatin 10 mg tablet 10 mg PO QHS CHOLESTEROL 05/03/25 citalopram 40 mg tablet 40 mg PO QDAY DEPRESSION 05/03/25 lisinopril 10 mg-hydrochlorothiazide 12.5 mg tablet 1 tab PO QDAY BP 05/03/25 Held on 07/28/25. Instructions: Resume on 07/30/25. Hold until systolic blood pressure (top number) is 140 or greater loratadine 10 mg tablet 10 mg PO QAM PRN allergic symptoms 05/03/25 omeprazole 40 mg capsule,delayed release 40 mg PO QDAY GERD 05/03/25 multivitamin (Daily Multi-Vitamin tablet) 1 tab PO DAILY SUPPLEMENT 05/19/25 dulaglutide 1.5 mg/0.5 mL subcutaneous pen injector (Trulicity) 1.5 mg subcut FR WEIGHT LOSS 06/30/25 zoledronic acid 5 mg/100 mL in mannitol 5 %-water intravenous piggybck 1 ea IV .QYEAR B[facility]ALTH 07/12/25 acetaminophen 500 mg tablet 1,000 mg (2 x 500 mg) PO Q8 #0 tabs 07/28/25 oxycodone 5 mg tablet 5 mg PO Q8H PRN PRN Pain Score 4-10 3 days #9 tabs 07/28/25
== END 2025-07-28 09:58 | disposition home or self-care (01) | DRG 24 ==
PROVIDERS: Internal Medicine Endocrinology, Diabetes & Metabolism; Admitting Provider Surgery Trauma Surgery; PCP Nurse Practitioner Family; Referring Provider Surgery Trauma Surgery; Visit Provider Surgery Trauma Surgery
PROC: 03CM0ZZ Extirpation of Matter from Right External Carotid Artery, Open Approach (ICD-10-PCS; CPT 35301; principal; 2025-07-27 07:10)
DX: I65.21 Occlusion and stenosis of right carotid artery (principal); I25.10 Atherosclerotic heart disease of native coronary artery without angina pectoris; K21.9 Gastro-esophageal reflux disease without esophagitis; Z87.891 Personal history of nicotine dependence; Z79.82 Long term (current) use of aspirin; Z79.899 Other long term (current) drug therapy
CPT/HCPCS: 36415; 80053; 82306; 82607; 82728; 83970; 84590; 85027; 85347; 86850; 86900; 86901; 88304; 88311; 93005; 94668; 99252; A4648; A4216; G0463; J2405